=== PATIENT | female | born 1980 | race Caucasian/White ===

== ENCOUNTER 2016-10-09 14:58 | Emergency (ER) | payer BC ==
[2016-10-09] MEDS ORDERED: Aspirin Low Dose CHEW TAB* 81 MG PO ONE (16:01)
[2016-10-09] MEDS ORDERED: Ondansetron INJ* 2 MG/ML VIAL IV ONE (16:19)
[2016-10-09] MEDS ORDERED: Morphine INJ* 2 MG/ML 1 ML CARPUJECT IV ONE (16:19)
[2016-10-09 16:37] LABS: Hematocrit 44 % (35-47); Mean Corpuscular HGB Conc 34 g/dl (31-36); Mean Corpuscular Hemoglobin 32 pg (27-31); Mean Corpuscular Volume 92 fL (80-97); Mean Platelet Volume 8 um3 (7.4-10.4); Red Blood Count 4.75 10^6/ul (4.0-5.4); Red Cell Distribution Width 13 % (10.5-15); White Blood Count 10.9 10^3/ul (3.5-10.8)
--- NOTE | 2016-10-09 16:43 | RAD ---
INDICATION: Chest pain COMPARISON: None. TECHNIQUE: Single AP portable view of the chest was obtained. FINDINGS: Image quality is compromised due to the relative inferiority of a portable chest x-ray. The heart and mediastinum exhibit normal size and contour. The lungs are grossly clear. There is no evidence of a large pleural effusion. At the subcutaneous tissue overlying the left flank and inferior most axilla there is lucency which could represent a laceration or gas. IMPRESSION: 1. Potential laceration or subcutaneous gas overlying the subcutaneous tissue at the left inferior axilla and left flank. Please correlate to physical examination. 2. No radiographic evidence for acute cardiopulmonary abnormality on this portable chest x-ray.
[2016-10-09 16:53] LABS: Troponin I 0.01 ng/mL (<0.04)
[2016-10-09 17:15] LABS: Albumin 4.3 g/dL (3.2-5.2); BUN/Creatinine Ratio 6.6 (8-20); EGFR African American 111.4 (>60); EGFR Non-African American 86.6 (>60); Globulin 2.9 g/dL (2-4); Potassium 3.6 mmol/L (3.5-5.0); Total Bilirubin 0.4 mg/dL (0.2-1.0); Total Protein 7.2 g/dL (6.4-8.9)
[2016-10-09] MEDS ORDERED: Iohexol 350* (CONTRAST) 500 ML MDV IV ONE (17:40)
--- NOTE | 2016-10-09 18:21 | RAD ---
INDICATION: Hemoptysis and pleuritic chest pain COMPARISON: None TECHNIQUE: Axial source images were acquired following the administration of 69 mL Omnipaque [address] angiographic technique. Coronal and sagittal reconstructed images were constructed and reviewed. FINDINGS: There there are no filling defects in the pulmonary arteries to indicate acute pulmonary embolic disease. There are no focal infiltrates or effusions. There are no pulmonary parenchymal masses. The heart is normal in size. There is no evidence of pericardial effusion. There is no evidence of aortic aneurysm or dissection. There is no mediastinal, hilar, or axillary lymphadenopathy. The visualized osseous structures appear normal. Limited views of the upper abdomen show no abnormalities. IMPRESSION: No CT of evidence of pulmonary embolism.
[2016-10-09] MEDS ORDERED: Ketorolac INJ* 30 MG/ML 1 ML VIAL IV PUSH ONE (20:25)
[2016-10-09] MEDS ORDERED: Albuterol HFA INHALER* 8 gm MDI INH ONE (20:25)
[2016-10-09] MEDS ORDERED: predniSONE TAB* 10 MG PO ONE (20:25)
[2016-10-09] MEDS ORDERED: Albuterol 2.5 MG/3 ML NEB.SOL* (0.083%) INH ONE (20:43)
[2016-10-09] MEDS ORDERED: traMADol TAB* 50 MG PO ONE (21:27)
[2016-10-09 21:39] VITALS: BP 107/77
--- NOTE | 2016-10-26 15:28 | ED ---
Lilly Humphreys Edward, scribed for Dorian West MD on 10/09/16 at 1613 . HPI Chest Pain - HPI Summary HPI Summary: 36 y/o female presents to ED c/o gradual onset, intermittent CP for the past couple of weeks. The pain has been getting progressively worse since it started and the episodes are lasting longer (minutes) and have become more severe. The CP is located in the L lateral region and will intermittently radiate to in between her shoulder blades. CP rated at 8/10 in the ED. Associated sx: SOB, dyspnea, cough with blood (last week). Denies edema and pain in the legs. Occasional EtOH, smoker. PMHx hypoglycemia. SHx hysterectomy. - History of Current Complaint Chief Complaint: EDChestPainROMI Time Seen by Provider: 10/09/16 16:00 Hx Obtained From: Patient Onset/Duration: Started Weeks Ago, Still Present Timing: Intermittent, Lasting Minutes Pain Intensity: 8 Pain Scale Used: 0-10 Numeric Chest Pain Location: Left Lateral Chest Pain Radiates: Yes Chest Pain Radiates To:: Back - In between the shoulder blades Associated Signs and Symptoms: Positive: Chest Pain, Shortness of Breath, Cough - with blood, Bloody Sputum, Other: - Dyspnea - Allergy/Home Medications Allergies/Adverse Reactions: Allergies Allergy/AdvReac Type Severity Reaction Status Date / Time Penicillins Allergy Rash Verified 10/09/16 15:08 PMH/Surg Hx/FS Hx/Imm Hx Previously Healthy: No Endocrine/Hematology History: Reports: Other Endocrine/Hematological Disorders - Hypoglycemia - Surgical History Surgery Procedure, Year, and Place: Hysterectomy Infectious Disease History: No Infectious Disease History: Denies: Traveled Outside the [place] in Last 30 Days - Family History Known Family History: Positive: Cardiac Disease - [place] - grandfather, grandmother and mother - Social History Occupation: Employed Full-time Lives: With Family Alcohol Use: Occasionally Hx Substance Use: No Substance Use Type: Reports: None Hx Tobacco Use: Yes Smoking Status (MU): Current Every Day Smoker Type: Cigarettes Review of Systems Negative: Fever, Chills Negative: Erythema Negative: Sore Throat Positive: Chest Pain Positive: Shortness Of Breath, Cough - with blood, Other - Dyspnea Negative: Abdominal Pain, Vomiting, Nausea Negative: dysuria, hematuria Negative: Myalgia, Edema Negative: Rash Neurological: Other - Dizziness All Other Systems Reviewed And Are Negative: Yes Physical Exam - Summary Physical Exam Summary: Constitutional: Well-developed, Well-nourished, Alert. (-) Distressed Skin: Warm, Dry HENT: Normocephalic; Atraumatic Eyes: Conjunctiva normal Neck: Musculoskeletal ROM normal neck. (-) JVD, (-) Stridor, (-) Tracheal deviation Cardio: Rhythm regular, rate normal, Heart sounds normal; Intact distal pulses; The pedal pulses are 2+ and symmetric. Radial pulses are 2+ and symmetric. (-) Murmur Pulmonary/Chest wall: Effort normal. (-) Respiratory distress, (-) Wheezes, (-) Rales. 3rd costochondral junction tenderness but does not exactly reproduce her pain. Abd: Soft, (-) Tenderness, (-) Distension, (-) Guarding, (-) Rebound Musculoskeletal: (-) Edema Lymph: (-) Cervical adenopathy Neuro: Alert, Oriented x3 Psych: Mood and affect Normal Triage Information Reviewed: Yes Vital Signs On Initial Exam: Initial Vitals Temp Pulse Resp BP Pulse Ox 96.9 F 69 19 131/93 100 10/09/16 15:04 10/09/16 15:04 10/09/16 15:04 10/09/16 15:04 10/09/16 15:04 Vital Signs Reviewed: Yes Diagnostics - Vital Signs Vital Signs Temp Pulse Resp BP Pulse Ox 10/09/16 16:04 98.0 F 68 15 119/83 99 10/09/16 15:04 96.9 F 69 19 131/93 100 - Laboratory Lab Results: Lab Results 10/09/16 10/09/16 10/09/16 Range/Units 16:30 16:30 16:30 WBC 10.9 H (3.5-10.8) 10^3/ul RBC 4.75 (4.0-5.4) 10^6/ul Hgb 15.0 (12.0-16.0) g/dl Hct 44 (35-47) % MCV 92 (80-97) fL MCH 32 H (27-31) pg MCHC 34 (31-36) g/dl RDW 13 (10.5-15) % Plt Count 302 (150-450) 10^3/ul MPV 8 (7.4-10.4) um3 Neut % (Auto) 63.4 (38-83) % Lymph % (Auto) 28.0 (25-47) % [place] % (Auto) 6.0 (1-9) % Eos % (Auto) 1.9 (0-6) % Baso % (Auto) 0.7 (0-2) % Absolute Neuts (auto) 6.9 (1.5-7.7) 10^3/ul Absolute Lymphs (auto) 3.0 (1.0-4.8) 10^3/ul Absolute Monos (auto) 0.7 (0-0.8) 10^3/ul Absolute Eos (auto) 0.2 (0-0.6) 10^3/ul Absolute Basos (auto) 0.1 (0-0.2) 10^3/ul Absolute Nucleated RBC 0.01 10^3/ul Nucleated RBC % 0.1 Sodium 136 (133-145) mmol/L Potassium 3.6 (3.5-5.0) mmol/L Chloride 107 (101-111) mmol/L Carbon Dioxide 22 (22-32) mmol/L Anion Gap 7 (2-11) mmol/L BUN 5 L (6-24) mg/dL Creatinine 0.76 (0.51-0.95) mg/dL Est GFR ( Amer) 111.4 (>60) Est GFR (Non-Af Amer) 86.6 (>60) BUN/Creatinine Ratio 6.6 L (8-20) Glucose 92 (70-100) mg/dL Lactic Acid 0.7 (0.5-2.0) mmol/L Calcium 9.0 (8.6-10.3) mg/dL Total Bilirubin 0.40 (0.2-1.0) mg/dL AST 11 L (13-39) U/L ALT 11 (7-52) U/L Alkaline Phosphatase 52 (34-104) U/L Troponin I 0.01 (<0.04) ng/mL Total Protein 7.2 (6.4-8.9) g/dL Albumin 4.3 (3.2-5.2) g/dL Globulin 2.9 (2-4) g/dL Albumin/Globulin Ratio 1.5 (1-3) 10/09/16 Range/Units 19:06 WBC (3.5-10.8) 10^3/ul RBC (4.0-5.4) 10^6/ul Hgb (12.0-16.0) g/dl Hct (35-47) % MCV (80-97) fL MCH (27-31) pg MCHC (31-36) g/dl RDW (10.5-15) % Plt Count (150-450) 10^3/ul MPV (7.4-10.4) um3 Neut % (Auto) (38-83) % Lymph % (Auto) (25-47) % [place] % (Auto) (1-9) % Eos % (Auto) (0-6) % Baso % (Auto) (0-2) % Absolute Neuts (auto) (1.5-7.7) 10^3/ul Absolute Lymphs (auto) (1.0-4.8) 10^3/ul Absolute Monos (auto) (0-0.8) 10^3/ul Absolute Eos (auto) (0-0.6) 10^3/ul Absolute Basos (auto) (0-0.2) 10^3/ul Absolute Nucleated RBC 10^3/ul Nucleated RBC % Sodium (133-145) mmol/L Potassium (3.5-5.0) mmol/L Chloride (101-111) mmol/L Carbon Dioxide (22-32) mmol/L Anion Gap (2-11) mmol/L BUN (6-24) mg/dL Creatinine (0.51-0.95) mg/dL Est GFR ( Amer) (>60) Est GFR (Non-Af Amer) (>60) BUN/Creatinine Ratio (8-20) Glucose (70-100) mg/dL Lactic Acid (0.5-2.0) mmol/L Calcium (8.6-10.3) mg/dL Total Bilirubin (0.2-1.0) mg/dL AST (13-39) U/L ALT (7-52) U/L Alkaline Phosphatase (34-104) U/L Troponin I 0.01 (<0.04) ng/mL Total Protein (6.4-8.9) g/dL Albumin (3.2-5.2) g/dL Globulin (2-4) g/dL Albumin/Globulin Ratio (1-3) Result Diagrams: 10/09/16 16:30 10/09/16 16:30 Lab Statement: Any lab studies that have been ordered have been reviewed, and results considered in the medical decision making process. - Radiology CXR Xray Interpretation: Positive (See Comments) - 1. Potential laceration or subcutaneous gas overlying the subcutaneous tissue at the left inferior axilla and left flank. Please correlate to physical examination. 2. No radiographic evidence for acute cardiopulmonary abnormality on this portable chest x-ray. Radiology Interpretation Completed By: Radiologist - CT CHEST/THORAX CTA CT Interpretation: No Acute Changes - NO CT EVIDENCE OF PULMONARY EMBOLISM CT Interpretation Completed By: Radiologist - EKG 1 EKG Rhythm: Sinus Rhythm - 76 bpm EKG Interpretation: 17:16 - No STEMI Re-Evaluation - Re-Evaluation 1 Re-Evaluation Time: 21:25 Change: Improved - Informed pt of risks of lung CA with hemoptysis. Pt understands Chest Pain Course/Dx - Course Assessment/Plan: 36 y/o female presents to ED c/o gradual onset, intermittent CP for the past couple of weeks. The pain has been getting progressively worse since it started and the episodes are lasting longer (minutes) and have become more severe. The CP is located in the L lateral region and will intermittently radiate to in between her shoulder blades. CP rated at 8/10 in the ED. Associated sx: SOB, dyspnea, cough with blood (last week). Denies edema and pain in the legs. Occasional EtOH, smoker. PMHx hypoglycemia. SHx hysterectomy. EKG @ 15:16 shows SINUS RHYTHM AT 76 BPM. CXR SHOWS 1. Potential laceration or subcutaneous gas overlying the subcutaneous tissue at the left inferior axilla and left flank. Please correlate to physical examination. 2. No radiographic evidence for acute cardiopulmonary abnormality on this portable chest x-ray. CHEST/THORAX CTA SHOWS NO CT EVIDENCE OF PULMONARY EMBOLISM. On re-eval @ 21:25 , pt's symptoms have improved and the pt wants to go home. I informed the patient that hemoptysis can cause lung CA, and the patient understands the risks. Pt will be discharged with f/u with Dr. Basurto. - Diagnoses Provider Diagnoses: Hemoptysis, Bronchitis, Chest wall pain Discharge - Discharge Plan Condition: Stable Disposition: HOME Prescriptions: Albuterol HFA INHALER* [Ventolin HFA Inhaler*] 1 - 2 puff INH Q6H PRN #1 mdi PRN Reason: Cough predniSONE TAB* [Deltasone TAB*] 40 mg PO DAILY #5 tab traMADol TAB* [Ultram*] 50 mg PO Q6HR PRN #10 tab MDD 4 PRN Reason: Pain - Moderate To Severe Patient Education Materials: Acute Bronchitis (ED), Hemoptysis (ED), Chest Wall Pain (ED) Referrals: Andrei Basurto MD [Medical Doctor] - 3 Days (Please f/u in 2-3 days) The documentation as recorded by the Lilly aguirre Edward accurately reflects the service I personally performed and the decisions made by , Dorian West MD.
== END 2016-10-09 22:13 | disposition home or self-care (01) ==
LOC: ED 14:58
DX: R04.2 Hemoptysis (principal); J40 Bronchitis, not specified as acute or chronic; R07.89 Other chest pain; R06.02 Shortness of breath; R05 Cough; R06.00 Dyspnea, unspecified; F17.210 Nicotine dependence, cigarettes, uncomplicated
CPT/HCPCS: 36415; 71010; 71275; 80053; 83605; 84484; 85025; 93005; 94640; 96374; 96375; 99284; A9270-GY; J1885; J2270; J2405; J7512; Q9967

== ENCOUNTER 2019-02-10 19:54 | Emergency (ER) | payer BC ==
[2019-02-10] MEDS ORDERED: Ondansetron INJ* 2 MG/ML VIAL IV ONE (20:05)
[2019-02-10] MEDS ORDERED: Tetan/Diph/Pertus SYR(Tdap)* 0.5 ML SYR(BOOSTRIX) use SYR contains LATEX IM ONE (20:05)
[2019-02-10] MEDS ORDERED: Morphine 4 MG/ML VIAL (1 ml) 4 MG/ML VIAL IV ONE ×2 (20:05→21:01)
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
[2019-02-10 20:47] LABS: ABS Basophils 0.1 10^3/ul (0-0.2); ABS Eosinophils 0.3 10^3/ul (0-0.6); ABS Lymphocytes 3.6 10^3/ul (1.0-4.8); ABS Monocytes 0.8 10^3/ul (0-0.8); ABS Neutrophils 4.8 10^3/ul (1.5-7.7); Eosinophil % 3.1 %; Hematocrit 39 % (35-47); Hemoglobin 13.6 g/dL (12.0-16.0); Mean Corpuscular HGB Conc 35 g/dL (31-36); Mean Corpuscular Hemoglobin 32 pg (27-31); Mean Corpuscular Volume 91 fL (80-97); Mean Platelet Volume 7.6 fL (7.4-10.4); Platelet Count 277 10^3/uL (150-450); Red Cell Distribution Width 14 % (10-15); White Blood Count 9.6 10^3/uL (3.5-10.8)
[2019-02-10 21:03] LABS: Albumin 4.2 g/dL (3.2-5.2); Albumin/Globulin Ratio 1.9 (1-3); BUN/Creatinine Ratio 8.3 (8-20); EGFR African American 92.3 (>60); EGFR Non-African American 76.3 (>60); Globulin 2.2 g/dL (2-4); Potassium 3.4 mmol/L (3.5-5.0); Total Bilirubin 0.2 mg/dL (0.2-1.0); Total Protein 6.4 g/dL (6.4-8.9)
[2019-02-10] MEDS ORDERED: Bacitracin OINTMENT* 0.5% 0.5 oz TUBE TOPICAL ONE (21:11)
[2019-02-10] MEDS ORDERED: Nicotine PATCH 14 MG/24 HR* PATCH TRANSDERM ONE (22:02)
[2019-02-10 22:53] VITALS: BP 111/76
== END 2019-02-10 23:23 | disposition short-term general hospital (02) ==
LOC: ED 19:54
DX: T23.301A Burn of third degree of right hand, unspecified site, initial encounter (principal); Z23 Encounter for immunization; X08.8XXA Exposure to other specified smoke, fire and flames, initial encounter; Y92.9 Unspecified place or not applicable; F17.210 Nicotine dependence, cigarettes, uncomplicated; Z88.0 Allergy status to penicillin; Z90.710 Acquired absence of both cervix and uterus
CPT/HCPCS: 36415; 80053; 82550; 83605; 85025; 90471; 90715; 96374; 96375; 96376; 99285; A9270-GY; J2270; J2405